=== PATIENT | male | born 1960 | race Two or more races ===

== ENCOUNTER 2024-03-31 16:48 | Inpatient (IN) | payer MEDICAID, OTHER ==
[~2024-03-31] VITALS: Ht 177.8 cm; Wt 122.0 kg
--- NOTE | 2024-03-31 17:27 | ED.PDOC ---
Musculoskeletal HPI Comments HPI: Poor Historian. HPI: 64 year old homeless male brought in by developmental electronics assembler presents to the ED with chief complaint of bilateral leg wounds. Speech Pathologist reports that today is the first day the patient is under her care and she had noticed multiple wounds to his bilateral legs along with a wound to his left arm that she was very concerned of. Speech Pathologist relays that the patient was previously homeless before being under her care and has no current PCP. Speech Pathologist states patient's wounds were noted to have maggots when she had first visualized them, but they have since been cleaned off. Patient notes he has had the wounds for approximately one year. Patient reports that he was previously admitted to [facility] for the same complaint, but had never followed up with his clerk specialist after being discharged. Patient relays that his pain is currently a 5/10. Patient admits to methamphetamine abuse and cigarette use. Patient notes his left arm wound was caused by a dog bite and had been previously sutured, but they were never removed. Patient denies any numbness, weakness, fevers, chills, or N/V/D. Initial Vital Signs: BP: 141/99 HR: 94 RR: 18 SpO2: 97% Past Medical History: Abdominal hernia Past Surgical History: Denies Social History: Smokes cigarettes, uses methamphetamine, denies ETOH use. Homeless now living with developmental electronics assembler. Medications: No medications. Allergies: NKDA REVIEW OF SYSTEMS: CONSTITUTIONAL: Denies acute: fever, diaphoresis, chills, generalized weakness. HEAD: Denies acute: headache, photophobia Eyes: Denies acute: Double vision, vision loss, eye pain, eye discharge. EARS: Denies acute: tinnitus, hearing loss, ear discharge, ear pain, THROAT: Denies acute: sore throat, swelling, difficulty swallowing , pain with swallowing, change in voice. NECK: Denies acute: neck pain, neck swelling, stiff neck. HEART: Denies acute : chest pain, palpitations, LUNGS: Denies acute: SOB, wheezing, cough, hemoptysis ABDOMEN: Denies acute: abdominal pain, Nausea, Vomiting, diarrhea, melena , hematemesis, hematochezia SKIN: Denies acute: rash, redness, lesions, itchiness. EXTREMITIES: Denies acute: calf pain, numbness, tingling, weakness, denies pain in extremity. Denies acute: Low back pain. Neuro: Denies acute: focal neurological deficit, motor or sensory focal neurological deficit, tremors, seizure like activity, confusion, dizziness, change in mental status, loss of bowel or bladder function, cauda equina like symptoms. : Denies acute: dysuria, hematuria, flank pain, increase in urinary frequency. PSYCH: Denies acute: hallucination, suicidal ideation, homicidal ideation. FEMALE: Denies acute: abnormal vaginal bleeding, foul odor, unusual discharge. PHYSICAL EXAM: General: no acute distress, awake and alert. Head: normocephalic, atraumatic. Neck: supple, trachea is midline, no swelling. Throat: Normal phonation. Eyes:, no erythema, no purulent discharge, no proptosis, no icterus. Heart: regular rate, regular rhythm, no significant murmur appreciated. Lungs: no apparent respiratory distress, Able to speak in full sentences. No wheezing, no rhonchi, no crackles. No stridors Clear to auscultation bilaterally. Abdomen: non tender to palpation, non distended, soft, no guarding, no rebound, + bowel sounds. Neuro: Awake, Alert, oriented to name, self, situation, follows commands GCS=15. Speech is normal. Skin: no petechia, no purpura, no cyanosis, non-pale, not jaundice. Lower extremities: --no - Pitting edema no deformity, no focal swelling, no calf TTP. Makes eye contact. moves all four extremities. Face: no apparent facial droop. No CVA tenderness to percussion bilaterally. Ambulating in the ED independently. Ears: Normal appearing TM b/l, Stroke: finger to nose cerebellar testing is intact. No pronator drift. Symmetrical inspector filters muscle strength b/l PERRLA, EOM-I CN 2-12 are grossly intact, Pedal pulses are palpable. No nystagmus. No nuchal rigidity, Kernig's sign, Brudzinski's sign, no meningeal signs. Time Seen by MD: 17:26 Reviewed Notes: Nurses Notes, Allergies Allergies: Coded Allergies: NO KNOWN ALLERGIES (Unverified , 03/31/24) Home Meds No Active Prescriptions or Reported Meds Information Source: Patient, Friend Mode of Arrival: Ambulatory Location: Bilateral Was a procedure done? Was a procedure done?: No Differential Diagnosis EXT Differential Diagnosis: Cellulitis, CHF, Deep Vein Thrombosis, Compartment Syndrome, Neurovascular injury, Other (Leg swellingDdx include but not limited to DVT, ischemic limb, pitting edema, volume overload, CHF, cellulitis, hematoma, compartment syndrome, dependent edema, venous stasis.) X-Ray, Labs, Meds, VS Vital Signs Date Time Temp Pulse Resp B/P (MAP) Pulse Ox O2 Delivery O2 Flow Rate FiO2 03/31/24 22:00 88 17 117/79 (92) 96 03/31/24 20:00 82 03/31/24 19:26 97.3 83 17 141/88 (105) 93 97.3 03/31/24 19:26 83 17 93 Room Air* 0 21 03/31/24 17:15 99.3 94 18 141/99 (113) 96 Lab Test 03/31/24 17:52 Range/Units White Blood Count 6.1 4.4-10.8 10^3/uL Red Blood Count 5.11 4.5-5.90 10^6/uL Hemoglobin 14.1 13.5-17.5 g/dL Hematocrit 42.7 41.0-53.0 % Mean Corpuscular Volume 83.5 80.0-100.0 fL Mean Corpuscular Hemoglobin 27.5 L 28.0-32.0 pg Mean Corpuscular Hemoglobin Concent 32.9 32.0-36.0 g/dL Red Cell Distribution Width 15.3 H 11.8-14.3 % Platelet Count 285 140-450 10^3/uL Mean Platelet Volume 9.1 6.9-10.8 fL Neutrophils (%) (Auto) 69.8 37.0-80.0 % Lymphocytes (%) (Auto) 16.6 10.0-50.0 % Monocytes (%) (Auto) 9.6 0.0-12.0 % Eosinophils (%) (Auto) 3.7 0.0-7.0 % Basophils (%) (Auto) 0.3 0.0-2.0 % Neutrophils # (Auto) 4.3 1.6-8.6 10 ^3/uL Lymphocytes # (Auto) 1.0 0.4-5.4 10 ^3/uL Monocytes # (Auto) 0.6 0-1.3 10 ^3/uL Eosinophils # (Auto) 0.2 0-0.8 10 ^3/uL Basophils # (Auto) 0 0-0.2 10 ^3/uL Nucleated Red Blood Cells 0.1 % Erythrocyte Sedimentation Rate 55 H 0-20 mm/hr Sodium Level 138 136-145 mmol/L Potassium Level 4.3 3.5-5.1 mmol/L Chloride Level 104 98-107 mmol/L Carbon Dioxide Level 22 20-31 mmol/L Anion Gap 12 5-15 Blood Urea Nitrogen 13 9-23 mg/dL Creatinine 1.23 0.700-1.30 mg/dL Glomerular Filtration Rate Calc 65 >90 mL/min BUN/Creatinine Ratio 10.6 10.0-20.0 Serum Glucose 71 L 74-106 mg/dL Lactic Acid Level 1.5 0.4-2.0 mmol/L Calcium Level 9.7 8.7-10.4 mg/dL Total Bilirubin 0.6 0.2-1.0 mg/dL Aspartate Amino Transferase (AST) 31 13-40 U/L Alanine Aminotransferase (ALT) 15 7-40 U/L Alkaline Phosphatase 128 H 46-116 U/L C-Reactive Protein High Sensitivity 4.10 H <1.0 mg/dL B-Type Natriuretic Peptide 23.79 0-100 pg/mL Total Protein 8.9 H 5.7-8.2 g/dL Albumin 4.7 3.2-4.8 g/dL Current Medications Medications (Trade) Dose Ordered Sig/Frank Route Start Time Stop Time Status Last Admin Piperacillin Sod/ Tazobactam Sod 100 ml @ 100 mls/hr ONCE ONCE IV 03/31/24 17:30 03/31/24 18:29 DC 03/31/24 19:50 Vancomycin HCl 250 ml @ 250 mls/hr Q1H IV 03/31/24 20:00 03/31/24 21:59 DC 03/31/24 22:15 Acetaminophen/ Hydrocodone Bitart ([place] 5/325MG Tab) 1 tab ONCE ONCE PO 03/31/24 21:15 03/31/24 21:16 DC 03/31/24 21:36 PATIENT: JITENDRA QUESADAACCT: [id number]: [id number] : 1960 LOC: ER ROOM / BED: / AGE / SEX: 64 / M ADM STATUS: REG ER SERVICE 19 ORDERING PHYSICIAN: CHARLES DAVILA DO PROCEDURE(s): BLDVT - BiLat Lower DVT REASON: red wound, ORDER NUMBER(s): [id number], ACCESSION NUMBER(s): [id number] Bilateral lower extremity venous duplex Clinical History: red wound, Comparison: None Technique: Duplex Doppler evaluation of the deep venous systems of both lower ex tremities from the common femoral veins to the popliteal veins including color Doppler and spectral/pulsed waveform analysis was performed. Findings: RIGHT SIDE: The common femoral vein demonstrates appropriate compressibility and waveform variability. There is compressibility/patency of the great saphenous vein at the proximal thigh. The femoral vein demonstrates appropriate compressibility and waveform variability. The deep femoral vein demonstrates appropriate compressibility and waveform variability. The popliteal vein demonstrates appropriate compressibility and waveform variability. There is color flow at the tibioperoneal trunk and in the posterior tibial vein. LEFT SIDE: The common femoral vein demonstrates appropriate compressibility and waveform variability. There is compressibility/patency of the great saphenous vein at the proximal thigh. The femoral vein demonstrates appropriate compressibility and waveform variability. The deep femoral vein demonstrates appropriate compressibility and waveform variability. The popliteal vein demonstrates appropriate compressibility and waveform variability. There is color flow at the tibioperoneal trunk and in the posterior tibial vein. Impression: 1. No right or left femoropopliteal venous thrombosis. ATED BY: EWA DELEON MD DICTATED DATE/TIME: 03/31/241828 SIGNED BY: EWA DELEON MD SIGNED DATE/TIME: 03/31/241828 PATIENT: JITENDRA QUESADA ACCT: [id number] UNIT: [id number] : 1960 LOC: ER ROOM / BED: / AGE / SEX: 64 / M ADM STATUS: REG ER SERVICE 19 ORDERING PHYSICIAN: CHARLES DAVILA DO PROCEDURE(s): BLEAD - BiLat Low Ext Art Duplex REASON: wound, redness ORDER NUMBER(s): [id number], ACCESSION NUMBER(s): [id number] Bilateral Lower Extremity Arterial Duplex Clinical History: wound, redness Comparison: None Technique: Duplex Doppler evaluation including color Doppler and spectral/pulsed waveform analysis of the lower extremity arteries was performed. Findings: RIGHT: Peak systolic velocities are less than 150 centimeter/second. Posterior tibial artery is not visualized. The waveforms are triphasic with diastolic flow. LEFT: Peak systolic velocity of the left superficial femoral artery, proximally measures 170 centimeter/second. All other peak systolic velocities are less than 150 centimeter/second. Posterior tibial artery is not visualized. The waveforms are triphasic with diastolic flow. IMPRESSION: No hemodynamically significant stenosis based on peak systolic velocity criteria on the right. 20-49% stenosis of the left proximal superficial femoral artery based on peak systolic velocity criteria. Nonvisualization of bilateral posterior tibial arteries likely related to overlying wounds. REFERENCE VALUES, [facility] ([facility]) vascular Imaging Lab Criteria: Peak systolic velocity ranges (in cm/sec) are as follows: <150 cm/s - <20 % stenosis 150-200 cm/s - 20-49% stenosis 200-300 cm/s - 50-75% stenosis >300 cm/s -> 75% stenosis ATED BY: JUSTIN SHIELDS MD DICTATED DATE/TIME: 03/31/241834 SIGNED BY: JUSTIN SHIELDS MD SIGNED DATE/TIME: 03/31/241834 Time of 1ST Reevaluation: 18:26 Reevaluation 1ST: Unchanged Patient Education/Counseling: Diagnosis, Treatment Family Education/Counseling: Other Comments Patient presented with the above HPI.---lower extremity wounds---workup was initiated. patient was found with the above mentioned diagnosis. the following medications were ordered: please refer to order lists of meds and tests obtained by myself Dr. Davila. Patient ED course and VS have been stabilized. Patient has been reassessed in the ED and remained in a stable condition. Pertinent incidental findings were discussed with the patient and/or family. Patient/family voices understanding and is agreeable with plan. Patient has been observed in the ED adequate length of time to insure improvement/stability. Escalation of care considered: Consideration of escalation to observation or admission Patient was ADMITTED to the medicine team for further evaluation and treatment of their presentation. All the reports of any imaging studies that were ordered by myself were reviewed by myself. Departure 1 Departure Time of Disposition: 18:33 Impression: Primary Impression: Open wound of both lower extremities Additional Impressions: Homelessness Methamphetamine abuse UTI (urinary tract infection) Disposition: ADMITTED INPATIENT Admit to: Tele Condition: Guarded e-Prescriptions No Active Prescriptions or Reported Meds Discharged With: Self Critical Care Note Critical Care Time?: No I personally scribed for CHARLES DAVILA DO ([email or web address]) on 03/31/24 at 17:27. Electronically submitted by Ghassan Marlow ([email or web address]). I personally scribed for CHARLES DAVILA DO ([email or web address]) on 03/31/24 at 17:39. Electronically submitted by Ghassan Marlow ([email or web address]). I personally scribed for CHARLES DAVILA DO ([email or web address]) on 03/31/24 at 18:59. Electronically submitted by Priyank Vargas ([email or web address]). CHARLES DAVILA DO Mar 31, 2024 17:27
[2024-03-31] MEDS ORDERED: VANCOMYCIN PER PHARMACY 0 MG IV SCH (17:30)
[2024-03-31 18:24] LABS: Basophils # (auto) 0 10 ^3/uL (0-0.2); Basophils % (auto) 0.3 % (0.0-2.0); Eosinophils # (auto) 0.2 10 ^3/uL (0-0.8); Eosinophils % (auto) 3.7 % (0.0-7.0); Hematocrit 42.7 % (41.0-53.0); Hemoglobin 14.1 g/dL (13.5-17.5); Lymphocytes % (auto) 16.6 % (10.0-50.0); Mean Corpuscular Hemoglobin 27.5 pg (28.0-32.0); Mean Corpuscular Hgb Conc. 32.9 g/dL (32.0-36.0); Mean Corpuscular Volume 83.5 fL (80.0-100.0); Monocytes # (auto) 0.6 10 ^3/uL (0-1.3); Monocytes % (auto) 9.6 % (0.0-12.0); Neutrophils # (auto) 4.3 10 ^3/uL (1.6-8.6); Neutrophils % (auto) 69.8 % (37.0-80.0); Nucleated Red Blood Cells % 0.1 %; Platelet Count (auto) 285 10^3/uL (140-450); Red Blood Cells 5.11 10^6/uL (4.5-5.90); Red Cell Distribution Width 15.3 % (11.8-14.3); White Blood Cell 6.1 10^3/uL (4.4-10.8)
--- NOTE | 2024-03-31 18:32 | DVH ---
Bilateral lower extremity venous duplex Clinical History: red wound, Comparison: None Technique: Duplex Doppler evaluation of the deep venous systems of both lower extremities from the co mmon femoral veins to the popliteal veins including color Doppler and spectral/pulsed waveform analys is was performed. Findings: RIGHT SIDE: The common femoral vein demonstrates appropriate compressibility and waveform variability. There is compressibility/patency of the great saphenous vein at the proximal thigh. The femoral vein demonstrates appropriate compressibility and waveform variability. The deep femoral vein demonstrates appropriate compressibility and waveform variability. The popliteal vein demonstrates appropriate compressibility and waveform variability. There is color flow at the tibioperoneal trunk and in the posterior tibial vein. LEFT SIDE: The common femoral vein demonstrates appropriate compressibility and waveform variability. There is compressibility/patency of the great saphenous vein at the proximal thigh. The femoral vein demonstrates appropriate compressibility and waveform variability. The deep femoral vein demonstrates appropriate compressibility and waveform variability. The popliteal vein demonstrates appropriate compressibility and waveform variability. There is color flow at the tibioperoneal trunk and in the posterior tibial vein. Impression: 1. No right or left femoropopliteal venous thrombosis.
--- NOTE | 2024-03-31 18:40 | DVH ---
Bilateral Lower Extremity Arterial Duplex Clinical History: wound, redness Comparison: None Technique: Duplex Doppler evaluation including color Doppler and spectral/pulsed waveform analysis of the lower extremity arteries was performed. Findings: RIGHT: Peak systolic velocities are less than 150 centimeter/second. Posterior tibial artery is not visuali zed. The waveforms are triphasic with diastolic flow. LEFT: Peak systolic velocity of the left superficial femoral artery, proximally measures 170 centimeter/sec ond. All other peak systolic velocities are less than 150 centimeter/second. Posterior tibial artery is no t visualized. The waveforms are triphasic with diastolic flow. IMPRESSION: No hemodynamically significant stenosis based on peak systolic velocity criteria on the right. 20-49% stenosis of the left proximal superficial femoral artery based on peak systolic velocity aleah roy. Nonvisualization of bilateral posterior tibial arteries likely related to overlying wounds. REFERENCE VALUES, [facility] ([facility]) vascular Imaging Lab Criteria: Peak systolic velocity ranges (in cm/sec) are as follows: <150 cm/s - <20 % stenosis 150-200 cm/s - 20-49% stenosis 200-300 cm/s - 50-75% stenosis >300 cm/s -> 75% stenosis
[2024-03-31 18:50] LABS: Alanine Aminotransferase 15 U/L (7-40); Albumin 4.7 g/dL (3.2-4.8); Anion Gap 12 (5-15); Aspartate Aminotransferase 31 U/L (13-40); BUN/Creatinine Ratio 10.6 (10.0-20.0); Bilirubin, Total 0.6 mg/dL (0.2-1.0); Blood Urea Nitrogen 13 mg/dL (9-23); Calcium 9.7 mg/dL (8.7-10.4); Carbon Dioxide 22 mmol/L (20-31); Chloride 104 mmol/L (98-107); Potassium 4.3 mmol/L (3.5-5.1); Sodium 138 mmol/L (136-145)
[2024-03-31 19:05] LABS: Alkaline Phosphatase 128 U/L (46-116); Glucose 71 mg/dL (74-106); Total Protein 8.9 g/dL (5.7-8.2)
[2024-03-31 19:21] LABS: Erythrocyte Sedimentation Rate 55 mm/hr (0-20)
[2024-03-31 19:26] VITALS: PULSE 83; RESP 17; O2SAT 93
[2024-03-31] MEDS: PIPERACILLIN-TAZOB 3.375GM 100 ML IV ONE (19:50)
[2024-03-31] MEDS: VANCOMYCIN 1GM/250ML KIT 250 ML IV SCH (20:55)
[2024-03-31] MEDS: HYDROcodone-ACET 5/325MG TAB PO ONE (21:36)
--- NOTE | 2024-03-31 22:29 | DVHHP2 ---
History of Present Illness Reason for Visit: Lower extremity wound infection History of Present Illness The patient is a 64-year-old male homeless with past medical history of abdominal hernia who presented to [facility] the [facility] ED with complaint of bilateral leg wound. Patient is currently residing with a senior c web developer who noticed multiple wound to his bilateral legs along with wound to the left arm. Administrative Support Coordinator states patient's wounds were noted to have maggots when she had first visualized them, but they have since been cleaned off. Patient reports he had the wounds for approximately 1 year. Patient reports that he was previously admitted to [facility] for the same complaint, but had never followed up with his clinical product specialist after being discharged. Patient was seen and evaluated in the ED, laboratory data shows WBC 6.1, platelets 285, sodium 138, potassium 4.3, BUN 13, creatinine 1.23, GFR 65, glucose 71, CRP 4.10, ESR 55. Patient was started on IV antibiotic regimen vancomycin, please see medication orders section in the computer. On my assessment, patient denies chest pain, no headache, no dizziness, no shortness of breath, no nausea, no vomiting, no fever, no chills. Patient was admitted for further evaluation and medical management. Past Medical History Abdominal hernia Past Surgical History Denies all surgeries Family History Reviewed, noncontributory to the management of this case. Past Social History Smokes cigarettes, uses methamphetamine, denies ETOH use. Homeless now living with senior c web developer. Review of Systems Constitutional: Yes: Weakness; No: Fever, Chills, Sweats, Malaise, Other Eyes: No: Pain, Vision change, Conjunctivae inflammation, Eyelid inflammation, Other, Redness ENT: No: Ear pain, Ear discharge, Nose pain, Nose discharge, Nose congestion, Mouth pain, Mouth swelling, Throat pain, Throat swelling, Other Respiratory: No: Cough, Dry, Shortness of breath, SOB with excertion, Wheezing, Hemoptysis, Pleuritic Pain, Sputum, Wheezing, Other Cardiovascular: No: Chest Pain, Palpitations, Orthopnea, Paroxysmal Noc. Dyspnea, Edema, Lt Headedness, Other Gastrointestinal: No: Nausea, Vomiting, Abdominal Pain, Diarrhea, Constipation, Melena, Hematochezia, Other Genitourinary: No Dysuria, No Frequency, No Incontinence, No Hematuria, No Retention, No Other Musculoskeletal: No: other, neck pain, shoulder pain, arm pain, back pain, hand pain, leg pain, foot pain Skin: Other (Lower extremity open wound); No: Rash, Lesions, Jaundice, Bruising Neurological: No: Weakness, Numbness, Incoordination, Change in speech, Confusion, Seizures, Other Allergies: Coded Allergies: NO KNOWN ALLERGIES (Unverified , 03/31/24) Medications Current Medications Medications Dose Ordered Sig/Frank Route Start Time Stop Time Status Last Admin Dose Admin Vancomycin HCl 0 ml @ 0 mls/hr UD IV 03/31/24 17:30 Vancomycin HCl 250 ml @ 250 mls/hr Q12H IV 04/01/24 09:00 Diagnostic Test (Pha) 1 strip ACHS 04/01/24 07:00 UNV Insulin Human Regular ACHS SC 04/01/24 07:00 UNV Dextrose 50 ml UD PRN IV 03/31/24 22:30 UNV Sodium Chloride 1,000 ml @ 60 mls/hr [id number] IV 03/31/24 22:30 UNV Acetaminophen/ Hydrocodone Bitart 1 tab Q4HP PRN PO 03/31/24 22:30 UNV Ondansetron HCl 4 mg Q4HP PRN IV 03/31/24 22:30 UNV Docusate Sodium 100 mg BIDPRN PRN PO 03/31/24 22:30 UNV Acetaminophen 650 mg Q6HP PRN PO 03/31/24 22:30 UNV Nitroglycerin 0.4 mg Q5MINP PRN SL 03/31/24 22:30 UNV Morphine Sulfate 2 mg Q30M PRN IV 03/31/24 22:30 UNV Exam Vital Signs Vital Signs Date Time Temp Pulse Resp B/P (MAP) Pulse Ox O2 Delivery O2 Flow Rate FiO2 03/31/24 20:00 82 03/31/24 19:26 97.3 17 141/88 (105) 93 97.3 03/31/24 19:26 Room Air* 0 21 General Appearance: Alert, Oriented X3, Cooperative, No acute distress HEENT: Atraumatic, PERRLA, EOMI, Mucous membr. moist/pink Respiratory: Clear to auscultation, Normal air movement Cardiovascular: Regular rate, Normal S1, Normal S2, No murmurs Abdominal: Normal bowel sounds, Soft, No tenderness, No hepatospenomegaly, No masses Extremities: No clubbing, No cyanosis, No edema, Normal pulses, No tenderness/swelling Skin: No rashes, No breakdown, No significant lesion Neuro: Normal speech, Normal tone, Sensation intact, Cranial nerves 3-12 NL, Reflexes 2+, Other (Generalized weakness) Psych/Mental Status: Mental status NL, Mood NL Labs/Xrays Labs Test 03/31/24 17:52 Range/Units White Blood Count 6.1 4.4-10.8 10^3/uL Red Blood Count 5.11 4.5-5.90 10^6/uL Hemoglobin 14.1 13.5-17.5 g/dL Hematocrit 42.7 41.0-53.0 % Mean Corpuscular Volume 83.5 80.0-100.0 fL Mean Corpuscular Hemoglobin 27.5 L 28.0-32.0 pg Mean Corpuscular Hemoglobin Concent 32.9 32.0-36.0 g/dL Red Cell Distribution Width 15.3 H 11.8-14.3 % Platelet Count 285 140-450 10^3/uL Mean Platelet Volume 9.1 6.9-10.8 fL Neutrophils (%) (Auto) 69.8 37.0-80.0 % Lymphocytes (%) (Auto) 16.6 10.0-50.0 % Monocytes (%) (Auto) 9.6 0.0-12.0 % Eosinophils (%) (Auto) 3.7 0.0-7.0 % Basophils (%) (Auto) 0.3 0.0-2.0 % Neutrophils # (Auto) 4.3 1.6-8.6 10 ^3/uL Lymphocytes # (Auto) 1.0 0.4-5.4 10 ^3/uL Monocytes # (Auto) 0.6 0-1.3 10 ^3/uL Eosinophils # (Auto) 0.2 0-0.8 10 ^3/uL Basophils # (Auto) 0 0-0.2 10 ^3/uL Nucleated Red Blood Cells 0.1 % Erythrocyte Sedimentation Rate 55 H 0-20 mm/hr Sodium Level 138 136-145 mmol/L Potassium Level 4.3 3.5-5.1 mmol/L Chloride Level 104 98-107 mmol/L Carbon Dioxide Level 22 20-31 mmol/L Anion Gap 12 5-15 Blood Urea Nitrogen 13 9-23 mg/dL Creatinine 1.23 0.700-1.30 mg/dL Glomerular Filtration Rate Calc 65 >90 mL/min BUN/Creatinine Ratio 10.6 10.0-20.0 Serum Glucose 71 L 74-106 mg/dL Lactic Acid Level 1.5 0.4-2.0 mmol/L Calcium Level 9.7 8.7-10.4 mg/dL Total Bilirubin 0.6 0.2-1.0 mg/dL Aspartate Amino Transferase (AST) 31 13-40 U/L Alanine Aminotransferase (ALT) 15 7-40 U/L Alkaline Phosphatase 128 H 46-116 U/L C-Reactive Protein High Sensitivity 4.10 H <1.0 mg/dL B-Type Natriuretic Peptide 23.79 0-100 pg/mL Total Protein 8.9 H 5.7-8.2 g/dL Albumin 4.7 3.2-4.8 g/dL PATIENT: JITENDRA QUESADA ACCT: [id number] UNIT: [id number] : 1960 LOC: ER ROOM / BED: / AGE / SEX: 64 / M ADM STATUS: REG ER SERVICE 1720 ORDERING PHYSICIAN: CHARLES DAVILA DO PROCEDURE(s): BLEAD - BiLat Low Ext Art Duplex REASON: wound, redness ORDER NUMBER(s): [id number], ACCESSION NUMBER(s): [id number] Bilateral Lower Extremity Arterial Duplex Clinical History: wound, redness Comparison: None Technique: Duplex Doppler evaluation including color Doppler and spectral/pulsed waveform analysis of the lower extremity arteries was performed. Findings: RIGHT: Peak systolic velocities are less than 150 centimeter/second. Posterior tibial artery is not visualized. The waveforms are triphasic with diastolic flow. LEFT: Peak systolic velocity of the left superficial femoral artery, proximally measures 170 centimeter/second. All other peak systolic velocities are less than 150 centimeter/second. Posterior tibial artery is not visualized. The waveforms are triphasic with diastolic flow. IMPRESSION: No hemodynamically significant stenosis based on peak systolic velocity criteria on the right. 20-49% stenosis of the left proximal superficial femoral artery based on peak systolic velocity criteria. Nonvisualization of bilateral posterior tibial arteries likely related to overlying wounds. REFERENCE VALUES, [facility]) vascular Imaging Lab Criteria: Peak systolic velocity ranges (in cm/sec) are as follows: <150 cm/s - <20 % stenosis 150-200 cm/s - 20-49% stenosis 200-300 cm/s - 50-75% stenosis >300 cm/s -> 75% stenosis ORDERING PHYSICIAN: CHARLES DAVILA DO PROCEDURE(s): BLDVT - BiLat Lower DVT REASON: red wound, ORDER NUMBER(s): [id number], ACCESSION NUMBER(s): [id number] Bilateral lower extremity venous duplex Clinical History: red wound, Comparison: None Technique: Duplex Doppler evaluation of the deep venous systems of both lower extremities from the common femoral veins to the popliteal veins including color Doppler and spectral/pulsed waveform analysis was performed. Findings: RIGHT SIDE: The common femoral vein demonstrates appropriate compressibility and waveform variability. There is compressibility/patency of the great saphenous vein at the proximal thigh. The femoral vein demonstrates appropriate compressibility and waveform variability. The deep femoral vein demonstrates appropriate compressibility and waveform variability. The popliteal vein demonstrates appropriate compressibility and waveform variability. There is color flow at the tibioperoneal trunk and in the posterior tibial vein. LEFT SIDE: The common femoral vein demonstrates appropriate compressibility and waveform variability. There is compressibility/patency of the great saphenous vein at the proximal thigh. The femoral vein demonstrates appropriate compressibility and waveform variabili ty. The deep femoral vein demonstrates appropriate compressibility and waveform variability. The popliteal vein demonstrates appropriate compressibility and waveform variability. There is color flow at the tibioperoneal trunk and in the posterior tibial v ein. Impression: 1. No right or left femoropopliteal venous thrombosis. Assessment/Plan Assessment/Plan Open wound of both lower extremities Homelessness Methamphetamine abuse UTI (urinary tract infection) Generalized weakness Plan 1. Admit to telemetry unit 2. Breathing treatment 3. Pain control management 4. IV antibiotic management 5. Management of fluids and electrolytes 6. Consultation for hospitalist/wound care 7. Diagnostic test chest x-ray 8. DVT prophylaxis-on Lovenox 9. Repeat labs CBC, CMP in a.m. 10. Home medication reviewed and reconciled 11. Continue with current medical management 12. Treatment plan discussed with patient and RN. Patient verbalized understanding. Plan discussed with: Patient, Other (RN) My Orders Orders - NEIL KATE DNP Procedure Category Date Status Time Glucose Blood PHA 04/01/24 Logged (Accu-Chek Comfort 07:00 Insulin R (Human) PHA 04/01/24 Logged (Insulin R) 07:00 Dextrose 50% Syringe PHA 03/31/24 Logged 22:30 Admit ADMIT 03/31/24 Transmitted 22:23 Allergies JOAQUIN 03/31/24 In Process 22:23 Code Status CODE 03/31/24 Transmitted 22:23 Sodium Chloride 0.9% PHA 03/31/24 Logged 22:30 Oxygen Per Hour RT 03/31/24 Transmitted 22:23 Hydrocodone-Acet PHA 03/31/24 Logged 5/325mg Tab ([place] 22:30 Ondansetron Hcl PHA 03/31/24 Logged (Zofran) 22:30 Docusate Sodium PHA 03/31/24 Logged Capsule (Colace 22:30 Fall Risk Precautions JOAQUIN 03/31/[address] 22:23 Complete Blood Count LAB 04/01/24 Verified 04:00 Comprehensive LAB 04/01/24 Verified Metabolic Panel 04:00 Cardiac DIET 04/01/24 Transmitted Diet-2gna,Lofat,Lochol Breakfast Condition: Serious JOAQUIN 03/31/24 In Process 22:23 Acetaminophen Tablet PHA 03/31/24 Logged (Tylenol Tablet) 22:30 Bedrest With Bathroom JOAQUIN 03/31/24 In Process Privileg 22:23 Sequential JOAQUIN 03/31/24 In Process Compression Device Nitroglycerin PHA 03/31/24 Logged Sublingual (Ntrostat 22:30 Morphine Sulfate PHA 03/31/24 Logged Injection 22:30 Notify Of Changes JOAQUIN 03/31/24 In Process From Base 22:23 Polymer Specialist For JOAQUIN 03/31/24 In Process 24 Hours 22:23 Emergency Dysrhythmia JOAQUIN 03/31/24 In Process Protocol 22:23 Rhythm Strips Once JOAQUIN 03/31/24 In Process Every Shift 22:23 Oxygen By Nasal RT 03/31/24 Transmitted Cannula 22:23 Problem List: (1) Open wound of both lower extremities (2) Methamphetamine abuse (3) Homelessness (4) UTI (urinary tract infection) (5) Generalized weakness Date of Service: Mar 31, 2024 Billing Provider: NEIL KATE DNP Common Visit Codes: [id number] INP/OBS CARE (HIGH) NEIL KATE DNP Mar 31, 2024 22:29
[2024-03-31] MEDS ORDERED: ONDANSETRON HCL 4 MG/2 ML VIAL IV PRN (22:30)
[2024-03-31] MEDS ORDERED: HYDROcodone-ACET 5/325MG TAB PO PRN (22:30)
[2024-03-31] MEDS ORDERED: DEXTROSE (50%) 50ML SYRG IV PRN (22:30)
[2024-03-31] MEDS ORDERED: ACETAMINOPHEN 325 MG TAB PO PRN (22:30)
[2024-03-31] MEDS ORDERED: MORPHINE SULFATE INJ 2 MG/ml SYRG IV PRN (22:30)
[2024-03-31] MEDS ORDERED: NITROGLYCERIN 0.4 MG SL TAB SL PRN (22:30)
[2024-03-31] MEDS: SODIUM CHLORIDE 0.9% 1,000 ML IV SCH (22:40)
[2024-03-31 22:50] LABS: Urine Bacteria None Seen /hpf (None Seen)
[2024-03-31 22:57] LABS: Urine Blood 1+ /uL (Negative); Urine Clarity Clear (Clear); Urine Color Yellow (Yellow); Urine Hyaline Cast FEW /lpf (0 - 2); Urine Mucus FEW (None Seen); Urine Protein, UAD TRACE (Negative); Urine Specific Gravity 1.024 (1.001-1.035); Urine Squamous Epithelial Cell FEW /hpf (<5); Urine Urobilinogen 2 mg/dL (Negative); Urine WBC 4 /HPF (0-3); Urine pH 5.5 (5.0-9.0)
[2024-03-31 23:07] LABS: Cannabinoid Screen, Urine Neg (NEGATIVE)
[2024-03-31 23:10] LABS: Amphetamine Screen, Urine Pos (NEGATIVE); Barbiturate Scree,Urine Neg (NEGATIVE); Opiate Scree,Urine Neg (NEGATIVE); Phencyclidine Screen, Urine Neg (NEGATIVE)
[2024-03-31 23:11] LABS: Benzodiazephine Screen, Urine Neg (NEGATIVE); Cocaine Screen, Urine Neg (NEGATIVE)
[2024-03-31 23:59] VITALS: BP 142/77; PULSE 86; RESP 19; TEMP 98.2; O2SAT 97
[2024-04-01] VITALS (9 sets, daily range): BP systolic 100–142; BP diastolic 51–79; PULSE 77–96; RESP 16–21; TEMP 98–98.8; O2SAT 91–98
[2024-04-01 06:27] LABS: Basophils # (auto) 0 10 ^3/uL (0-0.2); Basophils % (auto) 0.4 % (0.0-2.0); Eosinophils # (auto) 0.2 10 ^3/uL (0-0.8); Eosinophils % (auto) 2.6 % (0.0-7.0); Hematocrit 37.1 % (41.0-53.0); Hemoglobin 12.1 g/dL (13.5-17.5); Lymphocytes # (auto) 0.7 10 ^3/uL (0.4-5.4); Lymphocytes % (auto) 12.2 % (10.0-50.0); Mean Corpuscular Hemoglobin 27.3 pg (28.0-32.0); Mean Corpuscular Hgb Conc. 32.8 g/dL (32.0-36.0); Mean Corpuscular Volume 83.4 fL (80.0-100.0); Monocytes # (auto) 0.7 10 ^3/uL (0-1.3); Monocytes % (auto) 11.2 % (0.0-12.0); Neutrophils # (auto) 4.5 10 ^3/uL (1.6-8.6); Neutrophils % (auto) 73.6 % (37.0-80.0); Nucleated Red Blood Cells % 0.1 %; Platelet Count (auto) 267 10^3/uL (140-450); Red Blood Cells 4.45 10^6/uL (4.5-5.90); Red Cell Distribution Width 15.4 % (11.8-14.3); White Blood Cell 6.1 10^3/uL (4.4-10.8)
[2024-04-01] MEDS: ACCU-CHEK COMFORT CURVE STRIP VI SCH (06:30)
[2024-04-01] MEDS: InsuLIN REG 1unit/0.01ml Soln (100units/ml) SC SCH (06:30)
[2024-04-01 06:46] LABS: Alanine Aminotransferase 12 U/L (7-40); Albumin 3.5 g/dL (3.2-4.8); Alkaline Phosphatase 96 U/L (46-116); Anion Gap 8 (5-15); Aspartate Aminotransferase 21 U/L (13-40); BUN/Creatinine Ratio 11.6 (10.0-20.0); Blood Urea Nitrogen 11 mg/dL (9-23); Calcium 8.9 mg/dL (8.7-10.4); Carbon Dioxide 23 mmol/L (20-31); Chloride 107 mmol/L (98-107); Glucose 99 mg/dL (74-106); Potassium 3.6 mmol/L (3.5-5.1); Sodium 138 mmol/L (136-145)
[2024-04-01 06:47] LABS: Bilirubin, Total 0.8 mg/dL (0.2-1.0)
[2024-04-01] MEDS: ENOXAPARIN SOD 40 MG/0.4 ML SYRINGE SC SCH (08:46)
[2024-04-01] MEDS: VANCOMYCIN 1GM/250ML KIT 250 ML IV SCH (08:46)
[2024-04-01] MEDS: levoFLOXacin 250 MG TAB PO SCH (12:02)
[2024-04-01] MEDS ORDERED: ALPRAZolam 0.25 MG TAB PO PRN (13:00)
--- NOTE | 2024-04-01 13:00 | DVHPN2 ---
Subjective Patient denies any symptoms at this time. Reviewed: Care Plan, H&P, Labs, Medications Changes from previous H/P or p: No Changes General: Per HPI Eyes: No Pain, No Vision change, No Conjunctivae inflammation, No Eyelid inflammation, No Other, No Redness ENT: No Ear pain, No Ear discharge, No Nose pain, No Nose discharge, No Nose congestion, No Mouth pain, No Mouth swelling, No Throat pain, No Throat swelling, No Other Cardiovascular: No Chest Pain, No Palpitations, No Orthopnea, No Paroxysmal Noc. Dyspnea, No Edema, No Lt Headedness, No Other Respiratory: No Cough, No Dry, No Shortness of breath, No SOB with excertion, No Wheezing, No Hemoptysis, No Pleuritic Pain, No Sputum, No Other Gastrointestinal: No Nausea, No Vomiting, No Abdominal Pain, No Diarrhea, No Constipation, No Melena, No Hematochezia, No Other Genitourinary: No Dysuria, No Frequency, No Incontinence, No Hematuria, No Retention, No Other Musculoskeletal: No other, No neck pain, No shoulder pain, No arm pain, No back pain, No hand pain, No leg pain, No foot pain Skin: No Rash, No Lesions, No Jaundice, No Bruising; Other (Lower extremity open wound) Objective Vitals Vital Signs Date Time Temp Pulse Resp B/P (MAP) Pulse Ox O2 Delivery O2 Flow Rate FiO2 04/01/24 09:00 98.3 87 21 129/79 (96) 96 98.3 04/01/24 01:00 Nasal Cannula* 2 28 Intake/Output Intake and Output 04/01/24 07:00 Intake Total 2600 ml Balance 2600 ml Intake Oral 1000 ml IV Total 1600 ml General Appearance: Alert, Oriented X3, Cooperative, No acute distress HEENT: Atraumatic, PERRLA Lungs: Clear to auscultation, Normal air movement Cardiovascular: Normal S1, Normal S2 Abdomen: Normal bowel sounds, Soft, No tenderness, No hepatospenomegaly Musculoskeletal: Normal sensory function, Normal motor function Neuro: Normal gait, Normal speech Psych/Mental Status: Mental status NL, Mood NL Medications Current Medications Medications Dose Ordered Sig/Frank Route Start Time Stop Time Status Last Admin Dose Admin Vancomycin HCl 0 ml @ 0 mls/hr UD IV 03/31/24 17:30 Vancomycin HCl 250 ml @ 250 mls/hr Q12H IV 04/01/24 09:00 04/01/24 08:46 250 MLS/HR Diagnostic Test (Pha) 1 strip ACHS 04/01/24 07:00 04/01/24 12:02 1 STRIP Insulin Human Regular ACHS SC 04/01/24 07:00 Dextrose 50 ml UD PRN IV 03/31/24 22:30 Sodium Chloride 1,000 ml @ 60 mls/hr [id number] IV 03/31/24 22:30 04/01/24 06:33 60 MLS/HR Acetaminophen/ Hydrocodone Bitart 1 tab Q4HP PRN PO 03/31/24 22:30 Ondansetron HCl 4 mg Q4HP PRN IV 03/31/24 22:30 Docusate Sodium 100 mg BIDPRN PRN PO 03/31/24 22:30 Acetaminophen 650 mg Q6HP PRN PO 03/31/24 22:30 Nitroglycerin 0.4 mg Q5MINP PRN SL 03/31/24 22:30 Morphine Sulfate 2 mg Q30M PRN IV 03/31/24 22:30 Enoxaparin Sodium 40 mg DAILY SC 04/01/24 10:00 04/01/24 08:46 40 MG Levofloxacin 750 mg DAILY PO 04/01/24 11:51 04/01/24 12:02 750 MG Alprazolam 0.25 mg Q8HP PRN PO 04/01/24 13:00 UNV Laboratory Results Laboratory Tests 04/01/24 05:25 Chemistry Test 03/31/24 17:52 04/01/24 05:25 Albumin 4.7 g/dL (3.2-4.8) 3.5 g/dL (3.2-4.8) Calcium Level 9.7 mg/dL (8.7-10.4) 8.9 mg/dL (8.7-10.4) Total Protein 8.9 g/dL (5.7-8.2) H 7.0 g/dL (5.7-8.2) Cardiac Markers Test 03/31/24 17:52 B-Type Natriuretic Peptide 23.79 pg/mL (0-100) LFT Test 03/31/24 17:52 04/01/24 05:25 Alanine Aminotransferase (ALT) 15 U/L (7-40) 12 U/L (7-40) Alkaline Phosphatase 128 U/L (46-116) H 96 U/L (46-116) Aspartate Amino Transferase (AST) 31 U/L (13-40) 21 U/L (13-40) Total Bilirubin 0.6 mg/dL (0.2-1.0) 0.8 mg/dL (0.2-1.0) Urinalysis Test 03/31/24 22:35 Urine Color Yellow (Yellow) Urine Clarity Clear (Clear) Urine pH 5.5 (5.0-9.0) Urine Specific [place] 1.024 (1.001-1.035) Urine Protein Trace (Negative) H Urine Ketones Negative (Negative) Urine Blood 1+ /uL (Negative) H Urine Nitrite Negative (Negative) Urine Bilirubin Negative (Negative) Urine Urobilinogen 2 mg/dL (Negative) H Urine Leukocyte Esterase Trace /uL (Negative) Urine RBC 12 /hpf (0 - 3) Urine Microscopic WBC 4 /HPF (0-3) H Urine Squamous Epithelial Cells Few /hpf (<5) Urine Bacteria None seen /hpf (None Seen) Urine Hyaline Casts Few /lpf (0 - 2) Urine Mucus Few (None Seen) Urine Glucose Normal mg/dL (Normal) Labs and/or images reviewed: Labs reviewed by me, Image(s) reviewed by me Assessment/Plan Assessment/Plan Impression: -bilateral lower extremity cellulitis -amphetamine use -nicotine dependence -obesity Plan: -antibiotic therapy: Levaquin, vancomycin -wound culture -Xanax p.r.n. withdrawal symptoms, anxiety -PUD, DVT prophylaxis -repeat labs in a.m. Total time spent with patient discussing and formulating plan of care: 35 minutes. This medical document was created using an electronic medical record system with [employer] dictation system. Although this document has been carefully reviewed, there may still be some phonetic and typographical errors. These areas are purely typographical due to imperfections of the software programs, and do not reflect any compromise in the patient's medical care. Plan discussed with: Patient, Other (RN) My Orders Orders - YOLANDA FISHER NP Procedure Category Date Status Time Levofloxacin Tablet PHA 04/01/24 In Process (Levaquin Tablet) 11:51 Wound Culture W/ Gs AMANDA 04/01/24 Transmitted 12:55 Alprazolam Tablet PHA 04/01/24 Transmitted (Xanax Tablet) 13:00 Date of Service: Apr 01, 2024 Billing Provider: YOLANDA FISHER NP Common Visit Codes: [id number] INP/OBS CARE(HIGH) YOLANDA FISHER NP Apr 01, 2024 13:00
[2024-04-01 14:56] LABS: Base Excess -1.3 mmol/L (-2.0-3.0)
--- NOTE | 2024-04-01 15:31 | DVHSR ---
APPROVED REPORT EXAM: Two-dimensional and M-mode echocardiogram with Doppler and color Doppler. Blood Pressure: 129/79 mmHg INDICATION R/O endocarditis RISK FACTORS Height: 5'10", Weight: 234 DIMENSIONS LVDd5.1 (3.8-5.7cm)LA (2D)2.9 (1.9-4.0cm)Aortic Root3.7 (2.0-3.7cm) LVDs3.6 (2.5-4.0cm)LA (MM) (1.9-4.0cm)Aortic Cusp Exc2.0 (1.5-2.0cm) EF (%) 55.0 (55-70%)Rt. Atrium4.0 (1.9-4.0cm)Asc. Aorta cm IVSd1.1 (0.7-1.1cm)RV (D)4.2 (1.8-2.4cm) PWd0.9 (0.7-1.1cm) Mitral Valve MitralMitral Stenosis E wave0.67m/sMV Mean GR.mmHg A wave0.99m/sMV Peak GR.mmHg E/A ratio0.72D MVAcm2 DECEL [id number] 1/2 Tim[place] Aortic Valve Aortic ValveAortic Stenosis V11.18m/Rosa Mean GR.6mmHg V21.52m/Rosa Peak GR.9mmHg LVOT Diameter2.4 (1.8-2.4cm)Doppler AVA3.51cm2 LEFT VENTRICLE The left ventricle is normal size. There is normal left ventricular wall thickness. The left ventricle is normal in structure and function, LVEF is 55%. Normal wall motion. RIGHT VENTRICLE The right ventricle is normal size. The right ventricular systolic function is normal. ATRIA The left atrial size is normal. The right atrium size is normal. MITRAL VALVE The mitral valve is grossly normal. There is no mitral valve regurgitation noted. PULMONIC VALVE The pulmonic valve is grossly normal in structure and function. There is no pulmonic valvular regurgitation. TRICUSPID VALVE The tricuspid valve is grossly normal. There is mild tricuspid regurgitation. AORTIC VALVE The aortic valve is trileaflet. No aortic regurgitation is present. GREAT VESSELS There is borderline aortic root dilatation. PERICARDIAL EFFUSION No evidence of pericardial effusion. Conclusion The left ventricle is normal size. There is normal left ventricular wall thickness. The left ventricl e is normal in structure and function, LVEF is 55%. The right ventricular systolic function is normal. The left and right atrial size is normal. No significant valuvlar abnormalities. No evidence of pericardial effusion.
[2024-04-02] VITALS (7 sets, daily range): BP systolic 97–135; BP diastolic 57–84; PULSE 71–92; RESP 16–19; TEMP 97.5–98.6; O2SAT 91–98
--- NOTE | 2024-04-02 14:12 | DVHPN2 ---
Subjective Patient denies any symptoms at this time. Reviewed: Care Plan, H&P, Labs, Medications Changes from previous H/P or p: No Changes General: Per HPI Eyes: No Pain, No Vision change, No Conjunctivae inflammation, No Eyelid inflammation, No Other, No Redness ENT: No Ear pain, No Ear discharge, No Nose pain, No Nose discharge, No Nose congestion, No Mouth pain, No Mouth swelling, No Throat pain, No Throat swelling, No Other Cardiovascular: No Chest Pain, No Palpitations, No Orthopnea, No Paroxysmal Noc. Dyspnea, No Edema, No Lt Headedness, No Other Respiratory: No Cough, No Dry, No Shortness of breath, No SOB with excertion, No Wheezing, No Hemoptysis, No Pleuritic Pain, No Sputum, No Other Gastrointestinal: No Nausea, No Vomiting, No Abdominal Pain, No Diarrhea, No Constipation, No Melena, No Hematochezia, No Other Genitourinary: No Dysuria, No Frequency, No Incontinence, No Hematuria, No Retention, No Other Musculoskeletal: No other, No neck pain, No shoulder pain, No arm pain, No back pain, No hand pain, No leg pain, No foot pain Skin: No Rash, No Lesions, No Jaundice, No Bruising; Other (Lower extremity open wound) Objective Vitals Vital Signs Date Time Temp Pulse Resp B/P (MAP) Pulse Ox O2 Delivery O2 Flow Rate FiO2 04/02/24 13:00 98.1 92 19 130/70 (90) 94 98.1 04/01/24 20:00 Room Air* 0 21 Intake/Output Intake and Output 04/02/24 07:00 Intake Total 2250 ml Output Total 3750 ml Balance -1500 ml Intake Oral 1750 ml IV Total 500 ml Output Urine Total 3750 ml General Appearance: Alert, Oriented X3, Cooperative, No acute distress HEENT: Atraumatic, PERRLA Lungs: Clear to auscultation, Normal air movement Cardiovascular: Normal S1, Normal S2 Abdomen: Normal bowel sounds, Soft, No tenderness, No hepatospenomegaly Musculoskeletal: Normal sensory function, Normal motor function Neuro: Normal gait, Normal speech Skin: Dry, Intact Psych/Mental Status: Mental status NL, Mood NL Medications Current Medications Medications Dose Ordered Sig/Frank Route Start Time Stop Time Status Last Admin Dose Admin Vancomycin HCl 0 ml @ 0 mls/hr UD IV 03/31/24 17:30 Vancomycin HCl 250 ml @ 250 mls/hr Q12H IV 04/01/24 09:00 04/02/24 09:16 250 MLS/HR Diagnostic Test (Pha) 1 strip ACHS 04/01/24 07:00 04/02/24 11:40 1 STRIP Insulin Human Regular ACHS SC 04/01/24 07:00 Dextrose 50 ml UD PRN IV 03/31/24 22:30 Sodium Chloride 1,000 ml @ 60 mls/hr [id number] IV 03/31/24 22:30 04/01/24 21:38 60 MLS/HR Acetaminophen/ Hydrocodone Bitart 1 tab Q4HP PRN PO 03/31/24 22:30 Ondansetron HCl 4 mg Q4HP PRN IV 03/31/24 22:30 Docusate Sodium 100 mg BIDPRN PRN PO 03/31/24 22:30 Acetaminophen 650 mg Q6HP PRN PO 03/31/24 22:30 Nitroglycerin 0.4 mg Q5MINP PRN SL 03/31/24 22:30 Morphine Sulfate 2 mg Q30M PRN IV 03/31/24 22:30 Enoxaparin Sodium 40 mg DAILY SC 04/01/24 10:00 04/02/24 10:25 40 MG Levofloxacin 750 mg DAILY PO 04/01/24 11:51 04/02/24 10:25 750 MG Alprazolam 0.25 mg Q8HP PRN PO 04/01/24 13:00 Amino Acid Protein 30 ml DAILY PO 04/03/24 10:00 Ascorbic Acid 500 mg BID PO 04/02/24 22:00 Multivitamins/ Minerals 1 tab DAILY PO 04/03/24 10:00 Enteral Nutritional Formula 27.5 gm BID PO 04/02/24 22:00 Laboratory Results Laboratory Tests 04/01/24 05:25 04/02/24 05:38 Urinalysis Test 03/31/24 22:35 Urine Color Yellow (Yellow) Urine Clarity Clear (Clear) Urine pH 5.5 (5.0-9.0) Urine Specific [place] 1.024 (1.001-1.035) Urine Protein Trace (Negative) H Urine Ketones Negative (Negative) Urine Blood 1+ /uL (Negative) H Urine Nitrite Negative (Negative) Urine Bilirubin Negative (Negative) Urine Urobilinogen 2 mg/dL (Negative) H Urine Leukocyte Esterase Trace /uL (Negative) Urine RBC 12 /hpf (0 - 3) Urine Microscopic WBC 4 /HPF (0-3) H Urine Squamous Epithelial Cells Few /hpf (<5) Urine Bacteria None seen /hpf (None Seen) Urine Hyaline Casts Few /lpf (0 - 2) Urine Mucus Few (None Seen) Urine Glucose Normal mg/dL (Normal) Blood Gas Results Test 04/01/24 14:50 Arterial Blood pH 7.430 (7.350-7.450) FiO2 % 21.0 Microbiology Microbiology Date/Time Source Procedure Growth Status 04/01/24 14:00 Leg Right Gram Stain Pending Resulted 04/01/24 14:00 Leg Right Wound Culture - Preliminary Resulted 03/31/24 17:52 Blood Blood Culture - Preliminary NO GROWTH AFTER 24 HOURS OF INCUBATION. Resulted Labs and/or images reviewed: Labs reviewed by me, Image(s) reviewed by me Assessment/Plan Assessment/Plan Impression: -bilateral lower extremity cellulitis -amphetamine use -nicotine dependence -obesity Plan: Events: No events overnight. -antibiotic therapy: Discontinue vancomycin given Proteus species wound culture -echocardiogram: Results reviewed, unremarkable -wound culture -Xanax p.r.n. withdrawal symptoms, anxiety -PUD, DVT prophylaxis -physical therapy consultation Total time spent with patient discussing and formulating plan of care: 35 minutes. This medical document was created using an electronic medical record system with [employer] dictation system. Although this document has been carefully reviewed, there may still be some phonetic and typographical errors. These areas are purely typographical due to imperfections of the software programs, and do not reflect any compromise in the patient's medical care. Plan discussed with: Patient, Other (RN) My Orders Orders - YOLANDA FISHER [employer]PERINTENDENT Procedure Category Date Status Time Cleanse Wound With JOAQUIN 04/01/24 In Process Wound Clean 16:24 * Dietary Consult CONS 04/01/24 Transmitted 16:57 Notify Provider NOTICE 04/02/24 Transmitted Malnutrition 10:40 Nutritional NOURISH 04/02/24 Transmitted Supplements 10:40 Amino Acids-Protein PHA 04/03/24 In Process Hydrolysat (Pro-Stat 10:00 Ascorbic Acid Tablet PHA 04/02/24 In Process (Vitamin C Tablet) 22:00 Multiple Vitamin W PHA 04/03/24 In Process Mineral Tab (Mvi W/ M 10:00 Nutritional PHA 04/02/24 In Process Supplements (Hector 22:00 Date of Service: Apr 02, 2024 Billing Provider: YOLANDA FISHER NP Common Visit Codes: [id number] INP/OBS CARE(HIGH) YOLANDA FISHER NP Apr 02, 2024 14:12
[2024-04-02] MEDS: ASCORBIC ACID 500 MG TAB PO SCH (21:39)
[2024-04-02] MEDS: Juven Orange Powder PACKET 27.5gm PO SCH (21:42)
[2024-04-03] VITALS (7 sets, daily range): BP systolic 106–148; BP diastolic 52–96; PULSE 76–100; RESP 17–19; TEMP 97.9–98.6; O2SAT 90–98
[2024-04-03] MEDS: MULTIPLE VITAMINS W/ MINERALS TAB PO SCH (09:41)
[2024-04-03] MEDS: Pro-Stat SF 30ml Vanilla PO SCH (09:41)
--- NOTE | 2024-04-03 11:42 | DVHPN2 ---
Subjective Patient denies any symptoms at this time. Reviewed: Care Plan, H&P, Labs, Medications Changes from previous H/P or p: No Changes General: Per HPI Eyes: No Pain, No Vision change, No Conjunctivae inflammation, No Eyelid inflammation, No Other, No Redness ENT: No Ear pain, No Ear discharge, No Nose pain, No Nose discharge, No Nose congestion, No Mouth pain, No Mouth swelling, No Throat pain, No Throat swelling, No Other Cardiovascular: No Chest Pain, No Palpitations, No Orthopnea, No Paroxysmal Noc. Dyspnea, No Edema, No Lt Headedness, No Other Respiratory: No Cough, No Dry, No Shortness of breath, No SOB with excertion, No Wheezing, No Hemoptysis, No Pleuritic Pain, No Sputum, No Other Gastrointestinal: No Nausea, No Vomiting, No Abdominal Pain, No Diarrhea, No Constipation, No Melena, No Hematochezia, No Other Genitourinary: No Dysuria, No Frequency, No Incontinence, No Hematuria, No Retention, No Other Musculoskeletal: No other, No neck pain, No shoulder pain, No arm pain, No back pain, No hand pain, No leg pain, No foot pain Skin: No Rash, No Lesions, No Jaundice, No Bruising; Other (Lower extremity open wound) Objective Vitals Vital Signs Date Time Temp Pulse Resp B/P (MAP) Pulse Ox O2 Delivery O2 Flow Rate FiO2 04/03/24 08:53 98.6 87 17 127/85 (99) 92 98.6 04/03/24 08:00 Room Air* 0 21 Intake/Output Intake and Output 04/03/24 07:00 Intake Total 1570 ml Output Total 1900 ml Balance -330 ml Intake Oral 300 ml IV Total 1270 ml Output Urine Total 1900 ml # Bowel Movements 1 General Appearance: Alert, Oriented X3, Cooperative, No acute distress HEENT: Atraumatic, PERRLA Lungs: Clear to auscultation, Normal air movement Cardiovascular: Normal S1, Normal S2 Abdomen: Normal bowel sounds, Soft, No tenderness, No hepatospenomegaly Musculoskeletal: Normal sensory function, Normal motor function Neuro: Normal gait, Normal speech Skin: Dry, Intact Psych/Mental Status: Mental status NL, Mood NL Medications Current Medications Medications Dose Ordered Sig/Frank Route Start Time Stop Time Status Last Admin Dose Admin Acetaminophen/ Hydrocodone Bitart 1 tab Q4HP PRN PO 03/31/24 22:30 Ondansetron HCl 4 mg Q4HP PRN IV 03/31/24 22:30 Docusate Sodium 100 mg BIDPRN PRN PO 03/31/24 22:30 Acetaminophen 650 mg Q6HP PRN PO 03/31/24 22:30 Nitroglycerin 0.4 mg Q5MINP PRN SL 03/31/24 22:30 Morphine Sulfate 2 mg Q30M PRN IV 03/31/24 22:30 Enoxaparin Sodium 40 mg DAILY SC 04/01/24 10:00 04/03/24 09:40 40 MG Levofloxacin 750 mg DAILY PO 04/01/24 11:51 04/03/24 09:40 750 MG Alprazolam 0.25 mg Q8HP PRN PO 04/01/24 13:00 Amino Acid Protein 30 ml DAILY PO 04/03/24 10:00 04/03/24 09:41 30 ML Ascorbic Acid 500 mg BID PO 04/02/24 22:00 04/03/24 09:41 500 MG Multivitamins/ Minerals 1 tab DAILY PO 04/03/24 10:00 04/03/24 09:41 1 TAB Enteral Nutritional Formula 27.5 gm BID PO 04/02/24 22:00 04/02/24 21:42 27.5 GM Laboratory Results Laboratory Tests 04/01/24 05:25 04/02/24 05:38 Urinalysis Test 03/31/24 22:35 Urine Color Yellow (Yellow) Urine Clarity Clear (Clear) Urine pH 5.5 (5.0-9.0) Urine Specific [place] 1.024 (1.001-1.035) Urine Protein Trace (Negative) H Urine Ketones Negative (Negative) Urine Blood 1+ /uL (Negative) H Urine Nitrite Negative (Negative) Urine Bilirubin Negative (Negative) Urine Urobilinogen 2 mg/dL (Negative) H Urine Leukocyte Esterase Trace /uL (Negative) Urine RBC 12 /hpf (0 - 3) Urine Microscopic WBC 4 /HPF (0-3) H Urine Squamous Epithelial Cells Few /hpf (<5) Urine Bacteria None seen /hpf (None Seen) Urine Hyaline Casts Few /lpf (0 - 2) Urine Mucus Few (None Seen) Urine Glucose Normal mg/dL (Normal) Microbiology Microbiology Date/Time Source Procedure Growth Status 1/31/25 14:00 Leg Right Gram Stain - Final Resulted 04/01/24 14:00 Leg Right Wound Culture - Preliminary Resulted 03/31/24 17:52 Blood Blood Culture - Preliminary NO GROWTH AFTER 48 HOURS OF INCUBATION. Resulted Labs and/or images reviewed: Labs reviewed by me, Image(s) reviewed by me Assessment/Plan Assessment/Plan Impression: -bilateral lower extremity cellulitis -amphetamine use -nicotine dependence -obesity Plan: Events: No events overnight. Patient wound continues to be draining. DC planning once wound drainage has improved. -antibiotic therapy: Continue Levaquin, add clindamycin given culture now revealing Gram-positive cocci. -echocardiogram: Results reviewed, unremarkable -wound culture : Pending -Xanax p.r.n. withdrawal symptoms, anxiety -PUD, DVT prophylaxis -physical therapy consultation Total time spent with patient discussing and formulating plan of care: 35 minutes. This medical document was created using an electronic medical record system with [employer] dictation system. Although this document has been carefully reviewed, there may still be some phonetic and typographical errors. These areas are purely typographical due to imperfections of the software programs, and do not reflect any compromise in the patient's medical care. Plan discussed with: Patient, Other (RN) My Orders Orders - YOLANDA FISHER NP Procedure Category Date Status Time Pt Request For Service PT 04/02/24 Logged 14:12 Communication Order ORDERS 04/02/24 Transmitted 16:46 Clindamycin Ivpb PHA 04/03/24 Verified Cleocin 14:00 Florastor (S. PHA 04/04/24 Verified Boulardii) (Florastor) 10:00 Date of Service: Apr 03, 2024 Billing Provider: YOLANDA FISHER NP Common Visit Codes: [id number] INP/OBS CARE(HIGH) YOLANDA FISHER NP Apr 03, 2024 11:42
[2024-04-03] MEDS: CLINDAMYCIN 300MG IV 50 ML IV SCH (14:09)
[2024-04-03] MEDS: DOCUSATE SOD 100 MG CAP PO PRN (17:30)
[2024-04-04 05:00] VITALS: BP 132/87; PULSE 79; RESP 17; TEMP 97.5; O2SAT 93
[2024-04-04 08:00] VITALS: PULSE 75; RESP 18; O2SAT 92
[2024-04-04 09:14] VITALS: BP 122/70; PULSE 75; RESP 18; TEMP 98.3; O2SAT 92
[2024-04-04] MEDS: FLORASTOR (S. BOULARDII) 250 MG CAP PO SCH (09:37)
--- NOTE | 2024-04-04 10:23 | DVHPN2 ---
Subjective Patient denies any symptoms at this time. Reviewed: Care Plan, H&P, Labs, Medications Changes from previous H/P or p: No Changes General: Per HPI Eyes: No Pain, No Vision change, No Conjunctivae inflammation, No Eyelid inflammation, No Other, No Redness ENT: No Ear pain, No Ear discharge, No Nose pain, No Nose discharge, No Nose congestion, No Mouth pain, No Mouth swelling, No Throat pain, No Throat swelling, No Other Cardiovascular: No Chest Pain, No Palpitations, No Orthopnea, No Paroxysmal Noc. Dyspnea, No Edema, No Lt Headedness, No Other Respiratory: No Cough, No Dry, No Shortness of breath, No SOB with excertion, No Wheezing, No Hemoptysis, No Pleuritic Pain, No Sputum, No Other Gastrointestinal: No Nausea, No Vomiting, No Abdominal Pain, No Diarrhea, No Constipation, No Melena, No Hematochezia, No Other Genitourinary: No Dysuria, No Frequency, No Incontinence, No Hematuria, No Retention, No Other Musculoskeletal: No other, No neck pain, No shoulder pain, No arm pain, No back pain, No hand pain, No leg pain, No foot pain Skin: No Rash, No Lesions, No Jaundice, No Bruising; Other (Lower extremity open wound) Objective Vitals Vital Signs Date Time Temp Pulse Resp B/P (MAP) Pulse Ox O2 Delivery O2 Flow Rate FiO2 04/04/24 09:14 98.3 75 18 122/70 (87) 92 98.3 04/03/24 20:00 Room Air* 0 21 Intake/Output Intake and Output 04/04/24 07:00 Intake Total 1830 ml Output Total 1100 ml Balance 730 ml Intake Oral 1420 ml IV Total 410 ml Output Urine Total 1100 ml General Appearance: Alert, Oriented X3, Cooperative, No acute distress HEENT: Atraumatic, PERRLA Lungs: Clear to auscultation, Normal air movement Cardiovascular: Normal S1, Normal S2 Abdomen: Normal bowel sounds, Soft, No tenderness, No hepatospenomegaly Musculoskeletal: Normal sensory function, Normal motor function Neuro: Normal gait, Normal speech Skin: Dry, Intact Psych/Mental Status: Mental status NL, Mood NL Medications Current Medications Medications Dose Ordered Sig/Frank Route Start Time Stop Time Status Last Admin Dose Admin Acetaminophen/ Hydrocodone Bitart 1 tab Q4HP PRN PO 03/31/24 22:30 Ondansetron HCl 4 mg Q4HP PRN IV 03/31/24 22:30 Docusate Sodium 100 mg BIDPRN PRN PO 03/31/24 22:30 04/03/24 17:30 100 MG Acetaminophen 650 mg Q6HP PRN PO 03/31/24 22:30 Nitroglycerin 0.4 mg Q5MINP PRN SL 03/31/24 22:30 Morphine Sulfate 2 mg Q30M PRN IV 03/31/24 22:30 Enoxaparin Sodium 40 mg DAILY SC 04/01/24 10:00 04/04/24 09:38 40 MG Levofloxacin 750 mg DAILY PO 04/01/24 11:51 04/04/24 09:38 750 MG Alprazolam 0.25 mg Q8HP PRN PO 04/01/24 13:00 Amino Acid Protein 30 ml DAILY PO 04/03/24 10:00 04/04/24 09:38 30 ML Ascorbic Acid 500 mg BID PO 04/02/24 22:00 04/04/24 09:37 500 MG Multivitamins/ Minerals 1 tab DAILY PO 04/03/24 10:00 04/04/24 09:37 1 TAB Enteral Nutritional Formula 27.5 gm BID PO 04/02/24 22:00 04/04/24 09:39 27.5 GM Clindamycin Phosphate 50 ml @ 50 mls/hr Q8HR IV 04/03/24 14:00 04/04/24 05:34 50 MLS/HR Saccharomyces Boulardii 250 mg DAILY PO 04/04/24 10:00 04/04/24 09:37 250 MG Laboratory Results Laboratory Tests 04/01/24 05:25 04/02/24 05:38 Urinalysis Test 03/31/24 22:35 Urine Color Yellow (Yellow) Urine Clarity Clear (Clear) Urine pH 5.5 (5.0-9.0) Urine Specific [place] 1.024 (1.001-1.035) Urine Protein Trace (Negative) H Urine Ketones Negative (Negative) Urine Blood 1+ /uL (Negative) H Urine Nitrite Negative (Negative) Urine Bilirubin Negative (Negative) Urine Urobilinogen 2 mg/dL (Negative) H Urine Leukocyte Esterase Trace /uL (Negative) Urine RBC 12 /hpf (0 - 3) Urine Microscopic WBC 4 /HPF (0-3) H Urine Squamous Epithelial Cells Few /hpf (<5) Urine Bacteria None seen /hpf (None Seen) Urine Hyaline Casts Few /lpf (0 - 2) Urine Mucus Few (None Seen) Urine Glucose Normal mg/dL (Normal) Microbiology Microbiology Date/Time Source Procedure Growth Status 04/01/24 14:00 Leg Right Gram Stain - Final Resulted 04/01/24 14:00 Leg Right Wound Culture - Preliminary Resulted 03/31/24 17:52 Blood Blood Culture - Preliminary NO GROWTH AFTER 72 HOURS OF INCUBATION. Resulted Labs and/or images reviewed: Labs reviewed by me, Image(s) reviewed by me Assessment/Plan Assessment/Plan Impression: -bilateral lower extremity cellulitis -amphetamine use -nicotine dependence -obesity Plan: Events: No events overnight. Wound no longer draining. Attempted to obtain wound cultures, with results not finalized. -antibiotic therapy: Continue Levaquin, add clindamycin given culture now revealing Gram-positive cocci. -echocardiogram: Results reviewed, unremarkable -wound culture : Pending -Xanax p.r.n. withdrawal symptoms, anxiety -PUD, DVT prophylaxis -physical therapy consultation Total time spent with patient discussing and formulating plan of care: 35 minutes. This medical document was created using an electronic medical record system with [employer] dictation system. Although this document has been carefully reviewed, there may still be some phonetic and typographical errors. These areas are purely typographical due to imperfections of the software programs, and do not reflect any compromise in the patient's medical care. Plan discussed with: Patient, Other (RN) My Orders Orders - YOLANDA FISHER NP Procedure Category Date Status Time Clindamycin 300mg Iv PHA 04/03/24 In Process (Cleocin Iv) 14:00 Florastor (S. PHA 04/04/24 In Process Boulardii) (Florastor) 10:00 Date of Service: Apr 04, 2024 Billing Provider: YOLANDA FISHER NP Common Visit Codes: [id number] INP/OBS CARE(HIGH) YOLANDA FISHER NP Apr 04, 2024 10:23
[2024-04-04 13:00] VITALS: BP 148/88; PULSE 93; RESP 18; TEMP 97.8; O2SAT 93
[2024-04-04 17:00] VITALS: BP 156/78; PULSE 101; RESP 16; TEMP 97.5; O2SAT 91
[2024-04-04 21:00] VITALS: BP 132/69; PULSE 89; RESP 18; TEMP 98.6; O2SAT 94
[2024-04-05 01:00] VITALS: BP 136/89; PULSE 91; RESP 18; TEMP 98.3; O2SAT 92
[2024-04-05 05:00] VITALS: BP 108/65; PULSE 93; RESP 17; TEMP 98.6; O2SAT 92
[2024-04-05 08:00] VITALS: PULSE 78; RESP 18; O2SAT 95
[2024-04-05 08:54] VITALS: BP 100/74; PULSE 83; RESP 16; TEMP 98.3; O2SAT 92
[2024-04-05] MEDS ORDERED: LEVO500T91 PO (11:02)
--- NOTE | 2024-04-05 11:06 | DVHDS2 ---
Discharge Summary Date of Admission Mar 31, 2024 at 22:23 Date of Discharge: Apr 05, 2024 Admitting Diagnosis Bilateral extremity cellulitis Labs/Diagnostic Data: Laboratory Results Test 04/02/24 11:35 04/02/24 05:38 04/01/24 14:50 04/01/24 05:25 POC Glucose 82 mg/dl (70-106) Creatinine 1.12 mg/dL (0.700-1.30) Glomerular Filtration Rate Calc 73 mL/min (>90) Vancomycin Level Trough 16.1 ug/mL (5-10) Blood Gas Specimen Type Arterial Blood Gas Sample Site Right brachial Blood Gas Patient Temperature 37.0 Arterial Blood Date Drawn [id number] Arterial Blood pH 7.430 (7.350-7.450) Arterial Blood Partial Pressure CO2 34.5 mmHg (35.0-48.0) Arterial Blood Partial Pressure O2 54.6 mmHg (83.0-108.0) Arterial Blood HCO3 22.4 mmol/L (21.0-28.0) Arterial Blood Oxygen Saturation 88.0 % (94.0-98.0) Arterial Blood Base Excess -1.3 mmol/L (-2.0-3.0) Arterial Blood Oxyhemoglobin 86.9 % (94.0-98.0) Arterial Blood Carboxyhemoglobin 1.1 % (0.5-1.5) Arterial Blood Methemoglobin 0.1 % (0.0-1.5) Harlan Test N/a Blood Gas Total Hemoglobin 12.70 g/dL (13.5-17.5) Blood Gas Modality Room air FiO2 % 21.0 Blood Gas Critical Value Read Back Yes Blood Gas Notified Whom francisco Fisher np Blood Gas Notified Time [id number] Blood Gas Notified By Knot Bumper benny cerna White Blood Count 6.1 10^3/uL (4.4-10.8) Red Blood Count 4.45 10^6/uL (4.5-5.90) Hemoglobin 12.1 g/dL (13.5-17.5) Hematocrit 37.1 % (41.0-53.0) Mean Corpuscular Volume 83.4 fL (80.0-100.0) Mean Corpuscular Hemoglobin 27.3 pg (28.0-32.0) Mean Corpuscular Hemoglobin Concent 32.8 g/dL (32.0-36.0) Red Cell Distribution Width 15.4 % (11.8-14.3) Platelet Count 267 10^3/uL (140-450) Mean Platelet Volume 8.5 fL (6.9-10.8) Neutrophils (%) (Auto) 73.6 % (37.0-80.0) Lymphocytes (%) (Auto) 12.2 % (10.0-50.0) Monocytes (%) (Auto) 11.2 % (0.0-12.0) Eosinophils (%) (Auto) 2.6 % (0.0-7.0) Basophils (%) (Auto) 0.4 % (0.0-2.0) Neutrophils # (Auto) 4.5 10 ^3/uL (1.6-8.6) Lymphocytes # (Auto) 0.7 10 ^3/uL (0.4-5.4) Monocytes # (Auto) 0.7 10 ^3/uL (0-1.3) Eosinophils # (Auto) 0.2 10 ^3/uL (0-0.8) Basophils # (Auto) 0 10 ^3/uL (0-0.2) Nucleated Red Blood Cells 0.1 % Sodium Level 138 mmol/L (136-145) Potassium Level 3.6 mmol/L (3.5-5.1) Chloride Level 107 mmol/L (98-107) Carbon Dioxide Level 23 mmol/L (20-31) Anion Gap 8 (5-15) Blood Urea Nitrogen 11 mg/dL (9-23) BUN/Creatinine Ratio 11.6 (10.0-20.0) Serum Glucose 99 mg/dL (74-106) Calcium Level 8.9 mg/dL (8.7-10.4) Total Bilirubin 0.8 mg/dL (0.2-1.0) Aspartate Amino Transferase (AST) 21 U/L (13-40) Alanine Aminotransferase (ALT) 12 U/L (7-40) Alkaline Phosphatase 96 U/L (46-116) Total Protein 7.0 g/dL (5.7-8.2) Albumin 3.5 g/dL (3.2-4.8) Test 03/31/24 22:35 03/31/24 17:52 Urine Color Yellow (Yellow) Urine Clarity Clear (Clear) Urine pH 5.5 (5.0-9.0) Urine Specific [place] 1.024 (1.001-1.035) Urine Protein Trace (Negative) Urine Ketones Negative (Negative) Urine Blood 1+ /uL (Negative) Urine Nitrite Negative (Negative) Urine Bilirubin Negative (Negative) Urine Urobilinogen 2 mg/dL (Negative) Urine Leukocyte Esterase Trace /uL (Negative) Urine RBC 12 /hpf (0 - 3) Urine Microscopic WBC 4 /HPF (0-3) Urine Squamous Epithelial Cells Few /hpf (<5) Urine Bacteria None seen /hpf (None Seen) Urine Hyaline Casts Few /lpf (0 - 2) Urine Mucus Few (None Seen) Urine Glucose Normal mg/dL (Normal) Urine Opiates Screen Neg (NEGATIVE) Urine Fentanyl Screen Neg (NEGATIVE) Urine Barbiturates Screen Neg (NEGATIVE) Urine Phencyclidine Screen Neg (NEGATIVE) Urine Amphetamines Screen Pos (NEGATIVE) Urine Benzodiazepines Screen Neg (NEGATIVE) Urine Cocaine Screen Neg (NEGATIVE) Urine Cannabinoids Screen Neg (NEGATIVE) Erythrocyte Sedimentation Rate 55 mm/hr (0-20) Lactic Acid Level 1.5 mmol/L (0.4-2.0) C-Reactive Protein High Sensitivity 4.10 mg/dL (<1.0) B-Type Natriuretic Peptide 23.79 pg/mL (0-100) Other Laboratory Tests 04/02/24 05:38 04/01/24 05:25 Brief Hx & Hospital Course: History of Present Illness The patient is a 64-year-old male homeless with past medical history of abdominal hernia who presented to [facility] ED with complaint of bilateral leg wound. Patient is currently residing with a electronics processing supervisor who noticed multiple wound to his bilateral legs along with wound to the left arm. Luster Repairer states patient's wounds were noted to have maggots when she had first visualized them, but they have since been cleaned off. Patient reports he had the wounds for approximately 1 year. Patient reports that he was previously admitted to [facility] for the same complaint, but had never followed up with his technical maintenance specialist after being discharged. Patient was seen and evaluated in the ED, laboratory data shows WBC 6.1, platelets 285, sodium 138, potassium 4.3, BUN 13, creatinine 1.23, GFR 65, glucose 71, CRP 4.10, ESR 55. Patient was started on IV antibiotic regimen vancomycin, please see medication orders section in the computer. On my assessment, patient denies chest pain, no headache, no dizziness, no shortness of breath, no nausea, no vomiting, no fever, no chills. Patient was admitted for further evaluation and medical management. Course of hospitalization: Patient was continued on empiric antibiotic therapy. Wound culture came back positive for Staphylococcus aureus as well as Proteus mirabilis. Patient was current coverage with vancomycin and Levaquin was deescalated. Wounds are no longer weeping, with noted while approximation. Patient will be discharged home with home health services and continue antibiotic therapy with Levaquin 500 mg p.o. daily times 10 days. Patient will follow up with the discharge Clinic in one week. He was instructed to continue all previous home medications. Patient was also given lifestyle modification education with respect to his amphetamine abuse. Physical examination General: Alert and Oriented x3. No acute distress. Well-nourished. Eyes: EOMI. Anicteric. HENT: Moist mucous membranes. Lungs: Clear to auscultation bilaterally. No accessory muscle use. Cardiovascular: Regular rate and rhythm. No murmur. No JVD. Abdomen: Soft, non-tender and non-distended. No palpable masses. Extremities: No edema. Non-tender. Skin: No rashes or lesions. Warm. Neurologic: No focal neurological deficits. CN II-XII grossly intact, but not individually tested. Psychiatric: Cooperative. Appropriate mood and affect. Total time spent with patient discussing and formulating plan of care: 35 minutes. This medical document was created using an electronic medical record system with [employer] dictation system. Although this document has been carefully reviewed, there may still be some phonetic and typographical errors. These areas are purely typographical due to imperfections of the software programs, and do not reflect any compromise in the patient's medical care. Condition at Discharge: Fair Final Diagnosis/Problems List Lower extremity cellulitis with Staphylococcus aureus and Proteus mirabilis Secondary Diagnosis: -bilateral lower extremity cellulitis -amphetamine use -nicotine dependence -obesity Discharge Disposition: Home with Health Services Discharge Instruct/Medications Diet: Cardiac 2g Na,low cholest Activity: No Restrictions, As Tolerated Follow Up/Referral: Discharge Clinic in one week Medications: Levaquin 500 mg p.o. daily times 10 days 36 Discharge Statement: "Patient was advised to return to the ER or call 911 if any headaches, dizziness, shortness of breath, chest pain, abdominal pain, bleeding, fevers, or worsening of medical condition. Patient was counseled about treatment plan, medications, possible side effects, patientverbalized understanding. All questions were answered to the best of my ability. This discharge took greater then 30 minutes in planning, reviewing documentation, counseling the patient, and discussing with other team members." ASSESSMENT ASSESSMENT Assessment Lower extremity cellulitis with Staphylococcus aureus and Proteus mirabilis Date of Service: Apr 05, 2024 Billing Provider: YOLANDA FISHER NP Common Visit Codes: 81909-DUJ/OBS DISCH DAY >30min YOLANDA FISHER NP Apr 05, 2024 11:06
[2024-04-05 12:25] VITALS: BP 116/78; PULSE 72; RESP 17; TEMP 97.4; O2SAT 92
== END 2024-04-05 15:38 | disposition home health service (06) | DRG 383 ==
LOC: ER 16:48 → EEVIPCON 16:48 → OVERFLOW 22:23 → EEVIPCON 22:23 → CENTRAL 23:34
PROVIDERS: ADMIT Nurse Practitioner Family; ATTEND Nurse Practitioner Acute Care
DX: L03.115 Cellulitis of right lower limb (principal); S81.801A Unspecified open wound, right lower leg, initial encounter; S81.802A Unspecified open wound, left lower leg, initial encounter; F15.10 Other stimulant abuse, uncomplicated; L03.116 Cellulitis of left lower limb; E66.9 Obesity, unspecified; B95.61 Methicillin susceptible Staphylococcus aureus infection as the cause of diseases classified elsewhere; F17.210 Nicotine dependence, cigarettes, uncomplicated; N39.0 Urinary tract infection, site not specified; X58.XXXA Exposure to other specified factors, initial encounter; Z59.00 Homelessness unspecified; Y93.89 Activity, other specified; Y92.89 Other specified places as the place of occurrence of the external cause; Y99.8 Other external cause status; B96.4 Proteus (mirabilis) (morganii) as the cause of diseases classified elsewhere; Z68.31 Body mass index [BMI] 31.0-31.9, adult
CPT/HCPCS: 36415; 36600; 80053; 80202; 80307; 81001; 82565; 82805; 82962; 83605; 83880; 85025; 85652; 86141; 87040; 87077; 87186; 87205; 93306; 93925; 93970; 96365; 97163; G0378; J2543; J3490